=== PATIENT | female | born 1970 | race Caucasian/White ===

== ENCOUNTER 2023-04-18 13:18 | Outpatient (CLI) | payer SELFPAY | END 2023-04-18 13:19 | disposition home or self-care (01) | LOC: AMB 05-03 10:12 | PROVIDERS: Visit Provider Family Medicine | DX: T14.90XA Injury, unspecified, initial encounter (principal); R41.82 Altered mental status, unspecified; V48.3XXA Unspecified car occupant injured in noncollision transport accident in nontraffic accident, initial encounter; Y92.410 Unspecified street and highway as the place of occurrence of the external cause | CPT/HCPCS: A0425; A0429 ==